=== PATIENT | female | born 1960 | race Caucasian/White ===

== ENCOUNTER → 2022-08-13 11:15 | Outpatient (CLI) | payer OTHER, SELFPAY ==
--- NOTE | 2022-08-13 | DI.RAD.S_ITS ---
PROCEDURE: FL BARIUM SWALLOW W SPEECH INDICATIONS: Dysphagia, unspecified COMPARISON: None. TECHNIQUE: Examination was conducted in conjunction with speech pathology per standard protocol. In the lateral projection, filming was performed of the patient swallowing. AP projection filming may also be performed with patient swallowing. COMPARISON: FINDINGS: Function: The oral preparatory phase appears normal, with proper containment. The subsequent oral propulsive phase, pharyngeal phase, and esophageal phase of swallowing also appear normal with all proffered substances. No laryngotracheal penetration or aspiration. No pathologic vallecular pooling. Morphology: No cricopharyngeal bar is identified. No cervical esophageal webs. No Zenker's diverticulum. No strictures. IMPRESSION: No evidence of aspiration or penetration. Please see speech pathology report for complete findings. Dictated by: Nghia Solo M.D. on 08/13/2022 at 12:58 Approved by: Nghia Solo M.D. on 08/13/2022 at 12:58
--- NOTE | 2022-08-13 12:11 | ST.SWALLOW ---
Visit Care Team Role Provider Type REMI Hendrickson Attending Provider Non-Staff Primary Care Provider Referring Provider Specialty: Nursing Address: [facility] [address], [address], [place], [address] Email: Modified Barium Swallow Study [employer] Modified Barium Swallow Study Start: 08/13/22 12:03 Freq: Status: Active Protocol: Document 08/13/22 12:03 ZS (Rec: 08/13/22 12:11 ZS [id number]) Modified Barium Swallow Study Total Time Visit Start Time 11:30 Visit Stop Time 11:40 Total Visit Minutes 10 Setting Setting Outpatient Care Patient Information Identification Type Name Patient History Fabienne is a 62-year old female with a hx of GERD referred for a modified barium swallow study due to inflammation in her throat. She stated she does not have difficulty swallowing, does not experience coughing, throat clearing, or a wet/gurgly vocal quality. Subjective Observations Pt arrived on time and ambulated independently. Provided education regarding process and procedure and pt expressed understanding and agreed to participate. Patient Positioning Position View Lat-A/P Imaging Lateral View Textures Administered Trials Presented Thin Liquid via Cup,Norco Liquid via Cup,Regular Textures Oral Phase Source: MBSIMP (TM) (C) Bolus Specific Scoring Grid Lip Closure No Impairment (WNL) Tongue Control During Bolus Hold No Impairment (WNL) Bolus Prep/Mastication No Impairment (WNL) Bolus Transport/Lingual Motion No Impairment (WNL) A/P Lingual Propulsion Delay No Oral Residue No Impairment (WNL) Residue Clearing No Impairment (WNL) Nasal Regurgitation No Additional Oral Phase Observations No anterior or posterior loss of bolus during tongue hold. Mastication and a/p propulsion of bolus were timely and efficient. Minimal residue observed following swallow, which falls WNL. Pharyngeal Phase Source: MBSIMP (TM) (C) Bolus Specific Scoring Grid Delayed Initiation of Pharyngeal Swallow No Soft Palate Elevation No Impairment (WNL) Tongue Base Strength/Range of Motion No Impairment (WNL) Residue Along the Tongue Base No Laryngeal Elevation No Impairment (WNL) Anterior Hyoid Movement No Impairment (WNL) Epiglottic Range of Motion No Impairment (WNL) Vallecular Residue Yes: WNL Clearance of Vallecular Residue No Impairment (WNL) Laryngeal Vestibular Closure No Impairment (WNL) Pharyngeal Stripping Wave No Impairment (WNL) Pharyngeal Contraction No Impairment (WNL) Posterior Pharyngeal Wall Residue No Upper Esophageal Sphincter Opening No Impairment (WNL) Residue in the Pyriform Sinuses No Esophageal Clearance Upright Position No Impairment (WNL) Pharyngoesophageal Backflow Observed No Additional Pharyngeal Phase Observations Swallow was WNL. Minimal residue observed in valleculae following swallow, which falls WNL. No aspiration or penetration observed across all textures. A/P View Textures Administered Trials Presented Thin Liquid via Cup,Barium Tablet A/P View Observations Pharyngeal Contraction No Impairment (WNL) Vocal Fold Function Good Esophageal Function No Impairment (WNL) Esophageal Clearance Upright Position Minimal Impairment Additional Observations Minimal residue observed in esophagus following swallow, which is likely related to GERD diagnosis. Otherwise, swallow was WNL and bolus moved through esophagus in a timely and efficient manner. Clinical Impressions Dysphagia Type Swallow WNL Findings The pt presents with swallowing WNL. Structure and function of oral and pharyngeal mechanism is WNL. No aspiration or penetration observed across all textures. Minimal residue observed in esophagus following swallow, which is likely related to GERD diagnosis. Speech therapy is not indicated at this time as swallow is WNL. Patient Appropriate for Therapy No Recommendations Diet Liquids Order Thin Diet Order Regular Medication Recommendation As Tolerated
== END ==
PROVIDERS: PCP Nurse Practitioner; Referring Provider Nurse Practitioner; Visit Provider Nurse Practitioner
DX: R13.10 Dysphagia, unspecified (principal)
CPT/HCPCS: 74230; 92611